=== PATIENT | female | born 1965 | race Caucasian/White ===

== ENCOUNTER 2019-03-01 05:39 | Day surgery (SDC) | payer BC, OTHER ==
[2019-02-26 10:00] LABS: BASOPHILS # (AUTO) 0.03 x10^3/uL (0-0.1); BASOPHILS % (AUTO) 1 % (0-1); EOSINOPHILS % (AUTO) 2 % (1-7); LYMPHOCYTES # (AUTO) 1.59 x10^3/uL (1-3.4); LYMPHOCYTES % (AUTO) 27 % (22-44); MD NO; MEAN CORPUSCULAR HEMOGLOBIN 31.2 pg (27.0-34.8); MEAN CORPUSCULAR HGB CONC 33.6 g/dL (32.4-35.8); MEAN CORPUSCULAR VOLUME 92.7 fL (80-100); MONOCYTES # (AUTO) 0.54 x10^3/uL (0.2-0.8); MONOCYTES % (AUTO) 9 % (2-9); NEUTROPHILS # (AUTO) 3.68 x10^3/uL (1.8-6.8); NEUTROPHILS % (AUTO) 62 % (42-75); PLATELET COUNT 218 x10^3/uL (130-400); RED BLOOD COUNT 4.54 x10^6/uL (3.82-5.3); RED CELL DISTRIBUTION WIDTH 12.8 % (9.6-15.2)
[2019-02-26 10:12] LABS: ALANINE AMINOTRANSFERASE 30 U/L (12-78); ALBUMIN 3.8 g/dL (3.4-5.0); ANION GAP 5 mmol/L (5-15); CALCIUM 8.7 mg/dL (8.5-10.1); CHLORIDE 108 mmol/L (98-107); CREATININE 0.76 mg/dL (0.55-1.02)
[2019-02-26 10:14] LABS: ALKALINE PHOSPHATASE 71 U/L (45-117); BILIRUBIN,TOTAL 0.4 mg/dL (0.2-1.0); TOTAL PROTEIN 7.5 g/dL (6.4-8.2)
[~2019-03-01] VITALS: Ht 167.6 cm; Wt 74.4 kg
[~2019-03-01 05:39] MED LIST: FLAX10004 PO; IBUP1TAB11 PO; LISI1TAB23 PO; MULT-516 PO; OMEG1CAP23 PO; VITAMIN B6 PO
[2019-03-01] MEDS ORDERED: LACTATED RINGERS 1,000 ML IV SCH (06:23)
[2019-03-01 06:46] VITALS: BP 137/86
[2019-03-01] MEDS ORDERED: ACETAMINOPHEN 500 MG TABLET ONE (06:49)
[2019-03-01] MEDS ORDERED: GABAPENTIN 300 MG CAPSULE ONE (06:49)
[2019-03-01 06:53] LABS: HCG UR SG 1.011 (1.003-1.030)
[2019-03-01] MEDS ORDERED: LIDOCAINE-MPF 2% ,5ML ONE ×5 (06:58→07:14)
[2019-03-01] MEDS ORDERED: CEFAZOLIN 1,000 MG ONE ×4 (06:58)
[2019-03-01] MEDS ORDERED: PROPOFOL 10 MG/ML, 20ML ONE ×5 (06:58→07:11)
[2019-03-01] MEDS ORDERED: DEXAMETHASONE 4 MG/ML, 1ML ONE ×8 (06:58→07:13)
[2019-03-01] MEDS ORDERED: SUCCINYLCHOLINE 20 MG/ML, 10ML ONE ×2 (07:00)
[2019-03-01] MEDS ORDERED: ACETAMINOPHEN 500 MG TABLET PO ONE (07:00)
[2019-03-01] MEDS ORDERED: LIDOCAINE 1%, 20ML ONE (07:00)
[2019-03-01] MEDS ORDERED: FLUORESCEIN SODIUM 500 MG/5 ML ONE (07:00)
[2019-03-01] MEDS ORDERED: GABAPENTIN 300 MG CAPSULE PO ONE (07:00)
[2019-03-01] MEDS ORDERED: EPINEPHRINE 1 MG/ML, 1ML ONE (07:01)
[2019-03-01] MEDS ORDERED: THROMBIN (RECOMBINANT) 5,000 UNIT VIAL TP ONE (07:02)
[2019-03-01] MEDS ORDERED: SODIUM CHLORIDE 0.9% PF 10ML ONE ×6 (07:06→07:12)
[2019-03-01] MEDS ORDERED: FENTANYL PF 100 MCG/2ML ONE ×2 (07:09→07:37)
[2019-03-01] MEDS ORDERED: ONDANSETRON 2MG/ML, 2ML IV PRN (07:30)
[2019-03-01] MEDS ORDERED: EPHEDRINE 50 MG/ML, 1ML IVPush PRN (07:30)
[2019-03-01] MEDS ORDERED: MEPERIDINE/PF 25MG/ML,1ML IVPush PRN (07:30)
[2019-03-01] MEDS ORDERED: FENTANYL PF 100 MCG/2ML IV PRN (07:30)
[2019-03-01] MEDS ORDERED: hydrALAzine 20 MG/ML, 1ML IV PRN (07:30)
[2019-03-01] MEDS ORDERED: HYDROmorphone 2 MG/ML, 1ML IVPush PRN (07:30)
[2019-03-01] MEDS ORDERED: LABETALOL 5MG/ML, 20ML IV PRN (07:30)
[2019-03-01] MEDS ORDERED: OXYcodone 5 MG/5 ML ORAL.SOL UDC PO PRN (07:30)
[2019-03-01] MEDS ORDERED: KETOROLAC 30 MG/1 ML ONE (07:30)
[2019-03-01] MEDS ORDERED: PROMETHAZINE 25 MG/ML, 1ML IV PRN (07:30)
[2019-03-01] MEDS ORDERED: VANCOMYCIN 1,000 MG ONE (07:44)
[2019-03-01] MEDS ORDERED: GENTAMICIN 80 MG/2 ML ONE (07:44)
[2019-03-01] MEDS ORDERED: EPHEDRINE 50 MG/ML, 1ML ONE (08:08)
[2019-03-01] MEDS ORDERED: ONDANSETRON 2MG/ML, 2ML ONE (08:21)
== END 2019-03-01 12:00 | disposition home or self-care (01) ==
LOC: OUT 05:39
PROVIDERS: ATTEND Obstetrics & Gynecology Gynecology
DX: N81.10 Cystocele, unspecified (principal); N81.6 Rectocele; N36.42 Intrinsic sphincter deficiency (ISD); N39.3 Stress incontinence (female) (male); N94.10 Unspecified dyspareunia; I10 Essential (primary) hypertension; Z79.899 Other long term (current) drug therapy; Z88.8 Allergy status to other drugs, medicaments and biological substances; Z82.49 Family history of ischemic heart disease and other diseases of the circulatory system; Z83.3 Family history of diabetes mellitus; Z83.42 Family history of familial hypercholesterolemia
CPT/HCPCS: 36415; 57260; 57267; 80053; 81025; 85025; C1781; J0171; J0330; J0690; J1100; J1580; J1885; J2405; J2704; J3010; J3370; J7120

== ENCOUNTER 2019-03-08 13:11 | Outpatient (CLI) | payer BC, OTHER | END 2019-03-08 23:59 | disposition home or self-care (01) | LOC: RAD 13:11 | PROVIDERS: ATTEND Obstetrics & Gynecology Gynecology | DX: R39.81 Functional urinary incontinence (principal); N99.89 Other postprocedural complications and disorders of genitourinary system | CPT/HCPCS: 51600; 74430; Q9958 ==

== ENCOUNTER 2019-03-21 12:13 | Outpatient (CLI) | payer BC, OTHER ==
[2019-03-21] MEDS ORDERED: OMNIPAQUE 350 MG/ML, 100ML BOTTLE ONE (15:19)
== END 2019-03-21 23:59 | disposition home or self-care (01) ==
LOC: RAD 12:13
PROVIDERS: ATTEND Obstetrics & Gynecology Gynecology
DX: K57.32 Diverticulitis of large intestine without perforation or abscess without bleeding (principal)
CPT/HCPCS: 74177; Q9967

== ENCOUNTER → 2019-10-24 | Outpatient (CLI) | payer BC, OTHER ==
[2019-10-24 14:56] LABS: BASOPHILS # (AUTO) 0.02 x10^3/uL (0-0.1); BASOPHILS % (AUTO) 0 % (0-1); EOSINOPHILS # (AUTO) 0.05 x10^3/uL (0-0.4); EOSINOPHILS % (AUTO) 1 % (1-7); LYMPHOCYTES # (AUTO) 1.79 x10^3/uL (1-3.4); LYMPHOCYTES % (AUTO) 33 % (22-44); MD NO; MEAN CORPUSCULAR HEMOGLOBIN 30.9 pg (27.0-34.8); MEAN CORPUSCULAR HGB CONC 33.7 g/dL (32.4-35.8); MEAN CORPUSCULAR VOLUME 91.9 fL (80-100); MEAN PLATELET VOLUME 10.1 fL (7.4-10.4); MONOCYTES # (AUTO) 0.58 x10^3/uL (0.2-0.8); MONOCYTES % (AUTO) 11 % (2-9); NEUTROPHILS # (AUTO) 3.03 x10^3/uL (1.8-6.8); NEUTROPHILS % (AUTO) 55 % (42-75); PLATELET COUNT 228 x10^3/uL (130-400); RED BLOOD COUNT 4.45 x10^6/uL (3.82-5.3); RED CELL DISTRIBUTION WIDTH 13.3 % (9.6-15.2)
[2019-10-24 15:08] LABS: ALANINE AMINOTRANSFERASE 29 U/L (12-78); ALBUMIN 4.1 g/dL (3.4-5.0); ANION GAP 4 mmol/L (5-15); CALCIUM 9.4 mg/dL (8.5-10.1); CHLORIDE 105 mmol/L (98-107); CREATININE 1.01 mg/dL (0.55-1.02)
[2019-10-24 15:10] LABS: ALKALINE PHOSPHATASE 89 U/L (45-117); BILIRUBIN,TOTAL 0.2 mg/dL (0.2-1.0); TOTAL PROTEIN 7.9 g/dL (6.4-8.2)
== END | disposition home or self-care (01) ==
LOC: STAR 14:05
PROVIDERS: ATTEND Obstetrics & Gynecology Gynecology
DX: Z01.818 Encounter for other preprocedural examination (principal); R32 Unspecified urinary incontinence; N36.42 Intrinsic sphincter deficiency (ISD)
CPT/HCPCS: 36415; 71046; 80053; 85025; 93005

== ENCOUNTER 2019-11-02 11:23 | Day surgery (SDC) | payer BC, OTHER ==
[~2019-11-02] VITALS: Ht 167.6 cm; Wt 76.6 kg
[2019-11-02] MEDS ORDERED: CHLORHEXIDINE 15 ML UDC MM STA (11:45)
[2019-11-02] MEDS ORDERED: LACTATED RINGERS 1,000 ML IV ONE (11:45)
[2019-11-02 11:54] VITALS: BP 123/83
[2019-11-02 12:25] LABS: HCG UR SG 1.029 (1.003-1.030)
[2019-11-02] MEDS ORDERED: MIDAZOLAM 1 MG/ML, 2ML ONE (12:55)
[2019-11-02] MEDS ORDERED: FENTANYL PF 250 MCG/5ML ONE (12:55)
[2019-11-02] MEDS ORDERED: BUPIVACAINE/PF-EPI 0.25% 1:200K ONE (15:12)
[2019-11-02] MEDS ORDERED: INDIGO CARMINE 0.8%, 5ML ONE (15:12)
[2019-11-02] MEDS ORDERED: SODIUM CHLORIDE 0.9% 50 ML ONE (15:13)
[2019-11-02] MEDS ORDERED: LIDOCAINE 1%-EPI 1:100K, 20ML ONE (15:13)
[2019-11-02] MEDS ORDERED: CEFAZOLIN 1,000 MG ONE (15:30)
[2019-11-02] MEDS ORDERED: ONDANSETRON 2MG/ML, 2ML ONE (15:30)
[2019-11-02] MEDS ORDERED: SUGAMMADEX 200 MG/2 ML IVPush ONE (15:30)
[2019-11-02] MEDS ORDERED: SUCCINYLCHOLINE 20 MG/ML, 10ML ONE (15:30)
[2019-11-02] MEDS ORDERED: GLYCOPYRROLATE 0.2MG/1ML, 5ML ONE (15:30)
[2019-11-02] MEDS ORDERED: ROCURONIUM 10MG/ML,5ML ONE (15:30)
[2019-11-02] MEDS ORDERED: DEXAMETHASONE 4 MG/ML, 1ML ONE (15:30)
[2019-11-02] MEDS ORDERED: PROPOFOL 10 MG/ML, 20ML ONE (15:30)
[2019-11-02] MEDS ORDERED: NEOSTIGMINE 1 MG/ML, 10ML ONE (15:30)
[2019-11-02] MEDS ORDERED: KETOROLAC 30 MG/1 ML ONE (15:51)
[2019-11-02] MEDS ORDERED: OXYcodone 5 MG/5 ML ORAL.SOL UDC ONE (17:21)
[2019-11-02] MEDS ORDERED: OXYcodone 5 MG/5 ML ORAL.SOL UDC PO PRN (17:30)
== END 2019-11-02 18:35 | disposition home or self-care (01) ==
LOC: OUT 11:23
PROVIDERS: ATTEND Obstetrics & Gynecology Gynecology
DX: N36.42 Intrinsic sphincter deficiency (ISD) (principal); N39.3 Stress incontinence (female) (male); N81.10 Cystocele, unspecified; N81.6 Rectocele; I10 Essential (primary) hypertension; F32.9 Major depressive disorder, single episode, unspecified; E78.00 Pure hypercholesterolemia, unspecified; N94.10 Unspecified dyspareunia; Z79.899 Other long term (current) drug therapy; Z88.8 Allergy status to other drugs, medicaments and biological substances; Z83.3 Family history of diabetes mellitus; Z82.49 Family history of ischemic heart disease and other diseases of the circulatory system; Z83.42 Family history of familial hypercholesterolemia
CPT/HCPCS: 57288; 81025; C1771; J0330; J0690; J1100; J1885; J2250; J2405; J2704; J2710; J3010; J3490; J7120; 36415; 87635